=== PATIENT | male | born 1995 | race Two or more races ===

== ENCOUNTER 2018-02-09 08:32 | Emergency (ER) | payer SELFPAY ==
[~2018-02-09] VITALS: Ht 193 cm; Wt 117.9 kg
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
[2018-02-09] MEDS ORDERED: IBUPROFEN 800 MG TABLET. PO ONE (10:00)
[2018-02-09] MEDS ORDERED: HYDROcodone/APAP 5/325MG 1 TAB TABLET PO ONE (10:00)
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
[2018-02-09] MEDS ORDERED: IBUP-1060 PO (10:23)
[2018-02-09] MEDS ORDERED: CYCL5TAB PO (10:23)
[2018-02-09 11:30] VITALS: BP 127/79
== END 2018-02-09 11:57 | disposition home or self-care (01) ==
LOC: ER 08:32
DX: S16.1XXA Strain of muscle, fascia and tendon at neck level, initial encounter (principal); S39.012A Strain of muscle, fascia and tendon of lower back, initial encounter; M25.551 Pain in right hip; V43.92XA Unspecified car occupant injured in collision with other type car in traffic accident, initial encounter; Y93.89 Activity, other specified; Y92.410 Unspecified street and highway as the place of occurrence of the external cause; Y99.8 Other external cause status
CPT/HCPCS: 72125; 72131; 73502; 99284